=== PATIENT | female | born 2000 | race American Indian/Alaskan Native ===

== ENCOUNTER 2022-12-30 14:51 | Emergency (ER) | payer SELFPAY ==
[2022-12-30 16:22] LABS: BASOPHILS ABSOLUTE AUTO 0.04 K/mm3 (0.01-0.08); BASOPHILS PERCENT AUTO 0.5 % (0.1-1.2); EOSINOPHILS PERCENT AUTO 3.8 (0.7-5.8); HEMATOCRIT 35.3 % (34.1-44.9); HEMOGLOBIN 11.1 gm/dl (11.2-15.7); IMMATURE GRAN ABSOLUTE AUTO 0.01 K/mm3 (0.00-0.10); IMMATURE GRAN PERCENT AUTO 0.1 % (<=1.0); LYMPHOCYTES ABSOLUTE AUTO 2.88 K/mm3 (1.18-3.74); LYMPHOCYTES PERCENT AUTO 36.3 % (19.3-51.7); MEAN CORPUSCULAR HEMOGLOBIN 25.3 pg (25.6-32.2); MEAN CORPUSCULAR HGB CONC 31.4 g/dl (32.2-35.5); MEAN CORPUSCULAR VOLUME 80.6 fl (79.4-94.8); MEAN PLATELET VOLUME 10.5 fl (9.4-12.3); MONOCYTES ABSOLUTE AUTO 0.66 K/mm3 (0.24-0.36); MONOCYTES PERCENT AUTO 8.3 % (4.7-12.5); NEUTROPHILS ABSOLUTE AUTO 4.04 K/mm3 (1.56-6.13); PLATELET COUNT,PLT 324 K/mm3 (182-369); RED BLOOD CELL COUNT 4.38 M/mm3 (3.98-5.22); WHITE BLOOD CELL COUNT,WBC 7.93 K/mm3 (3.98-10.04)
[2022-12-30 16:23] LABS: APPEARANCE,URINE CLOUDY (Clear); BILIRUBIN,URINE NEGATIVE (Negative); COLOR,URINE LIGHT YELLOW (Yellow); GLUCOSE,URINE NEGATIVE (Negative); KETONES,URINE NEGATIVE (Negative); LEUKOCYTE ESTERASE,URINE NEGATIVE (Negative); NITRITE,URINE NEGATIVE (Negative); OCCULT BLOOD,URINE NEGATIVE (Negative); PH,URINE 8.5 (5.0-8.0); PROTEIN,URINE NEGATIVE (Negative); UROBILINOGEN,URINE 0.2 (0.2-1.0)
[2022-12-30 16:49] LABS: A/G RATIO 1.3 (1-2); ALBUMIN 4.9 g/dl (3.4-5.0); BILIRUBIN TOTAL 0.2 mg/dL (0.2-1.0); BUN/CREATININE RATIO 12.9 (14-18); CALCIUM 9.5 mg/dL (8.5-10.1); CREATININE 0.7 mg/dL (0.55-1.02); EST CRCL DRUG DOSING (CG) 90.26 mL/min; PROTEIN TOTAL,TP 8.7 g/dl (6.4-8.2)
[2022-12-30] MEDS ORDERED: Ondansetron 4 MG Tab.DIS PO ONE (17:13)
== END 2022-12-30 19:29 | disposition home or self-care (01) ==
LOC: JD.ED 14:51
DX: R00.2 Palpitations (principal); R11.0 Nausea
CPT/HCPCS: 36415; 80053; 81003; 83735; 84703; 85025; 93005; 93242; 99285; A9270; 93010; 99283